=== PATIENT | male | born 1955 | race Caucasian/White ===

== ENCOUNTER 2024-03-21 13:05 | Emergency (ER) | payer SELFPAY ==
[2024-03-21 14:30] LABS: #Basophils 0.04 10x3/uL (0.0-0.2); %Basophils 0.5 % (0.0-1.0); %Eosinophils 0.9 % (0.0-10.0); %Lymphocytes 37.8 % (21.0-51.0); %Monocytes 5.4 % (0.0-10.0); Hematocrit 37.8 % (42.0-52.0); Hemoglobin 12.8 g/dL (14.0-18.0); Mean Corpuscular HGB CONC 33.9 g/dL (32.0-36.0); Mean Corpuscular Hemoglobin 31.2 pg (27.0-31.0); Mean Corpuscular Volume 92.2 fL (78.0-98.0); Mean Platelet Volume 8.1 fL (7.4-10.4); Platelet Count 226 10x3/uL (130-400); RBC Distribution Width 12.8 % (11.5-14.5)
[2024-03-21] MEDS ORDERED: Ketorolac Tromethamine 30 MG (1 mL) VIAL ONE (14:40)
[2024-03-21 14:48] LABS: ALT (SGPT) 34 U/L (8-55); AST (SGOT) 35 U/L (5-34); Alkaline Phosphatase 97 U/L (40-110); Anion Gap 17 mmol/L (10-20); BUN (Urea Nitrogen) 17 mg/dL (8.4-25.7); Bilirubin, Total 0.3 mg/dL (0.2-1.2); Calc. Creatinine Clearance 0 mL/min (70-130); Calcium 8.3 mg/dL (7.8-10.44); Carbon Dioxide 23 mmol/L (23-31); Chloride 104 mmol/L (98-107); Estimated GFR 97; Globulin 3.2 g/dL (2.4-3.5); Glucose 86 mg/dL (80-115); Potassium 4.5 mmol/L (3.5-5.1); Protein, Total 7.2 g/dL (5.8-8.1); Sodium 139 mmol/L (136-145)
== END 2024-03-21 17:34 | disposition home or self-care (01) ==
LOC: ERS 13:05
DX: E86.0 Dehydration (principal); F10.10 Alcohol abuse, uncomplicated; G89.29 Other chronic pain; M54.9 Dorsalgia, unspecified; I10 Essential (primary) hypertension; Z86.73 Personal history of transient ischemic attack (TIA), and cerebral infarction without residual deficits
CPT/HCPCS: 36415; 80053; 85025; 93005; 96374; J1885

== ENCOUNTER 2024-04-05 13:55 | Observation (INO) | payer SELFPAY ==
[~2024-04-05 13:55] MED LIST: Iopamidol-370 76% 500 ML MDV (1 ML CHARGE) ONE
[2024-04-05 14:50] LABS: #Basophils 0.05 10x3/uL (0.0-0.2); %Basophils 0.5 % (0.0-1.0); %Lymphocytes 25.8 % (21.0-51.0); %Neutrophils 65.5 % (42.0-75.0); Hematocrit 38.5 % (42.0-52.0); Hemoglobin 13.1 g/dL (14.0-18.0); Mean Corpuscular Hemoglobin 31.8 pg (27.0-31.0); Mean Corpuscular Volume 93.4 fL (78.0-98.0); Mean Platelet Volume 7.7 fL (7.4-10.4); Platelet Count 337 10x3/uL (130-400); RBC Distribution Width 14.1 % (11.5-14.5); Red Blood Cell (RBC) Count 4.12 mill/uL (4.70-6.10)
[2024-04-05 15:11] LABS: Lipase 43 U/L (8-78)
[2024-04-05 15:19] LABS: Acetaminophen Less than 10 mcg/mL (Less than 10); Alcohol 448.6 mg/dL (Less than 10); Salicylate Less than 8.0 mg/dL (Less than 8.0)
[2024-04-05] MEDS ORDERED: Sodium Chloride 0.9% 100 ML ONE (15:47)
[2024-04-05] MEDS ORDERED: Cefepime 2 GM VIAL ONE (15:47)
[2024-04-05 16:23] LABS: Prothrombin Time 13.5 sec (12.0-14.7)
[2024-04-05 16:25] LABS: Actual Bicarbonate (HCO3v) 20.8 mEq/L (22-28); Base Excess -3.1 mEq/L (-2.0 to +3.0); Calcium, Ionized (venous) 1.03 mmol/L (1.16-1.32); Chloride (VBG) 99 mmol/L (98-106); Hematocrit-VBG 44 % (42.0-52.0); PTT 28.6 sec (22.9-36.1); Potassium (VBG) 4.61 mmol/L (3.70-5.30); Sodium 140 mmol/L (133-146); pH (venous) 7.402 (7.32-7.43)
[2024-04-05 17:10] LABS: Carbon Dioxide 23 mmol/L (23-31); Chloride 99 mmol/L (98-107); Potassium 4.7 mmol/L (3.5-5.1); Sodium 139 mmol/L (136-145)
[2024-04-05 17:11] LABS: Albumin 3.9 g/dL (3.1-4.5); Anion Gap 22 mmol/L (10-20); BUN (Urea Nitrogen) 16 mg/dL (8.4-25.7); Bilirubin, Total 0.3 mg/dL (0.3-1.2); Calc. Creatinine Clearance 0 mL/min (70-130); Calcium 8.3 mg/dL (7.6-10.4); Estimated GFR 70; Glucose 106 mg/dL (80-115); Protein, Total 6.8 g/dL (5.8-8.1)
[2024-04-05 17:12] LABS: Alkaline Phosphatase 81 U/L (40-110); Globulin 2.9 g/dL (2.4-3.5)
[2024-04-05 17:17] LABS: ALT (SGPT) 26 U/L (Less than 45); AST (SGOT) 30 U/L (11-34); Magnesium 2.1 mg/dL (1.6-2.6)
[2024-04-05] MEDS ORDERED: Haloperidol Lactate 5 MG/ML VIAL ONE (18:32)
[2024-04-05 20:42] LABS: Bacteria/HPF None Seen HPF (None Seen); Bilirubin Negative (Negative); Blood, Urine Negative (Negative); CAUTI Indications for Culture Alt mental st,lethar; Clarity Clear (Clear); Glucose, Urine (Dipstick) Normal (Negative); Ketone, Urine Negative (Negative); Leukocyte Negative Leu/uL (Negative); Nitrite Negative (Negative); Protein, Urine (Dipstick) Negative (Neg-Trace); RBC/HPF 0-3 HPF (0-3); Specific Gravity, Urine 1.015 (1.002-1.036); Squamous Epithelial None Seen HPF (0-3); Urobilinogen Normal mg/dL (Less than 2); WBC/HPF 0-3 HPF (0-3)
[2024-04-05 20:44] LABS: Urine Culture Reflex No No
[2024-04-05 20:49] LABS: Amphetamine Not Detected (NotDetected); Barbiturates Screen Not Detected (NotDetected); Benzodiazepine Screen Detected (NotDetected); Cocaine Metabolite Screen Not Detected (NotDetected); Methadone Not Detected (NotDetected); Methamphetamine Not Detected (NotDetected); Opiate Screen Not Detected (NotDetected); Oxycodone Screen Not Detected (NotDetected); Phencyclidine (PCP) Not Detected (NotDetected); THC/Cannabinoid Screen Not Detected (NotDetected); Tricyclic Screen Not Detected (NotDetected)
[2024-04-05 21:07] LABS: Lactic Acid 2.48 mmol/L (0.50-2.20)
[2024-04-05] MEDS ORDERED: Ketorolac Tromethamine 30 MG (1 mL) VIAL ONE (22:45)
[2024-04-05] MEDS ORDERED: Acetaminophen 500 MG TAB ONE (22:45)
[2024-04-05] MEDS ORDERED: Lorazepam 2 MG/ML VIAL IM PRN (23:44)
[2024-04-05] MEDS ORDERED: Lorazepam 1 MG TAB PO PRN (23:44)
[2024-04-05] MEDS ORDERED: Electrolyte Replacement Protocol 1 EACH FS SCH (23:45)
[2024-04-06] MEDS: Lorazepam 1 MG TAB PO SCH (00:23)
[2024-04-06] MEDS: Thiamine HCl 200 MG/2 ML VIAL SLOW IVP SCH (00:23)
[2024-04-06] MEDS: Ondansetron ODT 4 MG TAB PO PRN (00:23)
[2024-04-06] MEDS: Folic Acid 1 MG TAB PO SCH ×2 (00:24→09:16)
[2024-04-06] MEDS: Multivit, Therapeutic 1 TAB PO SCH ×2 (00:24→09:16)
[2024-04-06] MEDS: Dextrose 5%-Lactated Ringers 1,000 ML IV SCH (00:58)
[2024-04-06 03:17] VITALS: BMI 25.2
[2024-04-06] MEDS: Vancomycin (BATCH) 1.75 GM in Premix 1 BAG IVPB SCH (03:22)
[2024-04-06 04:55] LABS: #Basophils 0.06 10x3/uL (0.0-0.2); %Basophils 1.1 % (0.0-1.0); %Lymphocytes 26.2 % (21.0-51.0); %Monocytes 10.6 % (0.0-10.0); %Neutrophils 59.9 % (42.0-75.0); Hemoglobin 11.2 g/dL (14.0-18.0); Mean Corpuscular HGB CONC 33.9 g/dL (32.0-36.0); Mean Corpuscular Hemoglobin 31.9 pg (27.0-31.0); Mean Platelet Volume 7.9 fL (7.4-10.4); Platelet Count 251 10x3/uL (130-400); Red Blood Cell (RBC) Count 3.51 mill/uL (4.70-6.10)
[2024-04-06 05:16] LABS: Anion Gap 12 mmol/L (10-20); BUN (Urea Nitrogen) 15 mg/dL (8.4-25.7); Calc. Creatinine Clearance 96 mL/min (70-130); Calcium 8.2 mg/dL (7.8-10.44); Carbon Dioxide 26 mmol/L (23-31); Chloride 107 mmol/L (98-107); Estimated GFR 94; Glucose 101 mg/dL (80-115); Potassium 4.5 mmol/L (3.5-5.1); Sodium 140 mmol/L (136-145)
[2024-04-06 08:04] VITALS: BP 166/76; TEMP 97.7
[2024-04-06 08:57] LABS: Lactic Acid 2.03 mmol/L (0.50-2.20)
[2024-04-06] MEDS: Pantoprazole 40 MG DR.TAB PO SCH (09:16)
[2024-04-06] MEDS: Lisinopril 20 MG TAB PO SCH (09:16)
[2024-04-06] MEDS: FLU (Fluarix Triv) TS24-25(6MOS UP)/PF 45 MCG/0.5 ML Syringe IM ONE (09:16)
[2024-04-06] MEDS ORDERED: Lorazepam 1 MG TAB PO PRN (23:44)
[2024-04-07] MEDS ORDERED: Lorazepam 1 MG TAB PO PRN (23:44)
[2024-04-07] MEDS ORDERED: Lorazepam 0.5 MG TAB PO SCH (23:45)
[2024-04-08] MEDS ORDERED: Thiamine 100 MG TAB PO SCH (21:00)
[2024-04-08] MEDS ORDERED: Lorazepam 0.5 MG TAB PO PRN (23:44)
== END 2024-04-06 09:50 | disposition home or self-care (01) ==
LOC: ERS 13:55 → OBS 21:59
PROVIDERS: ADMIT Student in an Organized Health Care Education/Training Program; ATTEND Internal Medicine
DX: F10.229 Alcohol dependence with intoxication, unspecified (principal); I25.10 Atherosclerotic heart disease of native coronary artery without angina pectoris; I10 Essential (primary) hypertension; Z79.899 Other long term (current) drug therapy; Y90.8 Blood alcohol level of 240 mg/100 ml or more
CPT/HCPCS: 36415; 70450; 71045; 71260; 74177; 80048; 80053; 80306; 80307; 81001; 82140; 82805; 83605; 83690; 83735; 84484; 85025; 85610; 85730; 87040; 87086; 93005; 96375; G0378; J0692; J1630; J1885; J3370; J3411; Q0162; Q9967